=== PATIENT | female | born 1995 | race Caucasian/White ===

== ENCOUNTER → 2020-10-30 | Outpatient (CLI) | payer OTHER ==
[~2020-10-30] MED LIST: ADVAIR 250-501 EACH IH; ADVAIR INH; COLACE 100MG C100 MG PO; FERROUS SULFAT325 M2 PO; IBUPROFEN600 MG PO; KEPPRA250 MG PO; KEPPRA500 MG PO; NORCO 5-325 TA1 EACH PO; PRENATAL 19 TA1 EACH PO; PROVENTIL HFA 61 INH INH; PROVENTIL INH; TYLENOL325 MG PO
== END ==
LOC: NM 10-28 06:29
DX: M86.9 Osteomyelitis, unspecified (principal)
CPT/HCPCS: 78800; A9569